=== PATIENT | male | born 1990 | race Caucasian/White ===

== ENCOUNTER 2019-03-23 15:52 | Inpatient (IN) | payer OTHER ==
[2019-03-23] MEDS ORDERED: ONDANSETRON 4 MG INJ IV (17:30)
[2019-03-23] MEDS ORDERED: ACETAMINOPHEN 325 MG TAB PO (17:30)
[2019-03-24] MEDS ORDERED: ACETAMINOPHEN 325 MG TAB PO (00:30)
[2019-03-24] MEDS ORDERED: ONDANSETRON 4 MG INJ IV (00:30)
[2019-03-24] MEDS: SOD CHLORIDE 0.9% 1,000 ML IV ×3 (00:56→20:20)
[2019-03-24 04:20] LABS: ADD UMIC YES; UR ASCORBIC ACID NEGATIVE (NEGATIVE); UR BILIRUBIN (Dip) NEGATIVE (NEGATIVE); UR BLOOD (Dip) NEGATIVE (NEGATIVE); UR CLARITY CLEAR (CLEAR); UR COLOR YELLOW (YELLOW); UR GLUCOSE (Dip) NEGATIVE (NEGATIVE); UR KETONES (Dip) NEGATIVE (NEGATIVE); UR LEUKOCYTE ESTERASE (Dip) NEGATIVE Leu/ul (NEGATIVE); UR NITRITE (Dip) NEGATIVE (NEGATIVE); UR RBC 0 /HPF (0-5); UR SPECIFIC GRAVITY (Dip) 1.013 (1.003-1.030); UR TOTAL PROTEIN (Dip) 1+ mg/dl (NEGATIVE); UR UROBILINOGEN (Dip) NEGATIVE (NEGATIVE); UR WBC 0 /HPF (0-5)
[2019-03-24 04:21] LABS: SODIUM,URINE RANDOM 37 mmol/L (30-90)
[2019-03-24 06:53] LABS: ADD MAN DIFF? NO
[2019-03-24 06:58] LABS: BASOPHILS % 0.1 % (0.0-2.0); EOSINOPHILS % 0.1 % (0.0-7.0); HEMATOCRIT 29.9 % (42.0-52.0); HEMOGLOBIN 10.1 g/dl (14.0-18.0); LYMPHOCYTES # 1.5 10^3/ul (0.8-2.9); LYMPHOCYTES % 15.4 % (15.0-51.0); MEAN CORPUSCULAR HEMOGLOBIN 30.3 pg (29.0-33.0); MEAN CORPUSCULAR HGB CONC 33.8 g/dl (32.0-37.0); MEAN CORPUSCULAR VOLUME 89.8 fl (82.0-101.0); MEAN PLATELET VOLUME 10.1 fl (7.4-10.4); MONOCYTE # 0.7 10^3/ul (0.3-0.9); MONOCYTES % 7.4 % (0.0-11.0); NEUTROPHIL # 7.4 10^3/ul (1.6-7.5); NEUTROPHILS % 76.7 % (39.0-77.0); PLATELET COUNT 243 10^3/UL (140-415); RED BLOOD COUNT 3.33 10^6/ul (4.70-6.10); RED CELL DISTRIBUTION WIDTH 12.3 % (11.5-14.5)
[2019-03-24 06:58] LABS: WHITE BLOOD COUNT 9.6 10^3/ul (4.8-10.8)
[2019-03-24 07:15] LABS: ANION GAP 11 (5-13); BLOOD UREA NITROGEN 61 mg/dl (7-20); CARBON DIOXIDE 20 mmol/L (21-31); CHLORIDE 108 mmol/L (97-110); CREATINE KINASE 69 IU/L (23-200); CREATININE 3.73 mg/dl (0.61-1.24); Estimated GFR 19 mL/min (>60); GLUCOSE 105 mg/dl (70-220); POTASSIUM 4.9 mmol/L (3.5-5.1); SODIUM 139 mmol/L (135-144)
[2019-03-24] MEDS: ALLOPURINOL 300 MG TAB PO (08:35)
[2019-03-24] MEDS: FERROUS SULFATE (EC) 325 MG TAB PO (08:36)
[2019-03-24] MEDS: MULTIVITAMINS THERAPEUTIC TAB PO (08:36)
[2019-03-24] MEDS: AMLODIPINE 10 MG TAB PO (08:36)
[2019-03-24] MEDS ORDERED: MULTIVITAMIN PO (09:00)
[2019-03-24] MEDS: morphine 2 MG INJ IV (20:15)
[2019-03-24] MEDS: ATORVASTATIN 10 MG TAB PO (20:16)
[2019-03-24] MEDS ORDERED: NON-FORMULARY/PATIENT OWN MED (Simvastatin* (Zocor*) 10 MG) PO (21:00)
[2019-03-25] MEDS: morphine 2 MG INJ IV ×2 (00:44→05:03)
[2019-03-25 06:29] LABS: ADD MAN DIFF? NO
[2019-03-25 06:32] LABS: BASOPHILS % 0.4 % (0.0-2.0); EOSINOPHILS # 0.1 10^3/ul (0.0-0.5); EOSINOPHILS % 0.8 % (0.0-7.0); HEMATOCRIT 28.6 % (42.0-52.0); HEMOGLOBIN 9.6 g/dl (14.0-18.0); LYMPHOCYTES # 2.3 10^3/ul (0.8-2.9); LYMPHOCYTES % 30.1 % (15.0-51.0); MEAN CORPUSCULAR HEMOGLOBIN 30.2 pg (29.0-33.0); MEAN CORPUSCULAR HGB CONC 33.6 g/dl (32.0-37.0); MEAN CORPUSCULAR VOLUME 89.9 fl (82.0-101.0); MEAN PLATELET VOLUME 10.3 fl (7.4-10.4); MONOCYTE # 0.6 10^3/ul (0.3-0.9); MONOCYTES % 8.1 % (0.0-11.0); NEUTROPHIL # 4.6 10^3/ul (1.6-7.5); NEUTROPHILS % 60.5 % (39.0-77.0); PLATELET COUNT 252 10^3/UL (140-415); RED BLOOD COUNT 3.18 10^6/ul (4.70-6.10); RED CELL DISTRIBUTION WIDTH 12.2 % (11.5-14.5)
[2019-03-25 06:32] LABS: WHITE BLOOD COUNT 7.6 10^3/ul (4.8-10.8)
[2019-03-25 06:53] LABS: ANION GAP 11 (5-13); BLOOD UREA NITROGEN 58 mg/dl (7-20); CALCIUM 9.1 mg/dl (8.4-10.2); CARBON DIOXIDE 20 mmol/L (21-31); CHLORIDE 111 mmol/L (97-110); Estimated GFR 22 mL/min (>60); GLUCOSE 138 mg/dl (70-220); PHOSPHORUS 3.4 mg/dl (2.5-4.9); POTASSIUM 4.2 mmol/L (3.5-5.1); SODIUM 142 mmol/L (135-144)
[2019-03-25 08:01] LABS: HEMOGLOBIN A1C 5.3 % (0-5.9)
[2019-03-25] MEDS: ALLOPURINOL 300 MG TAB PO (09:35)
[2019-03-25] MEDS: MULTIVITAMINS THERAPEUTIC TAB PO (09:35)
[2019-03-25] MEDS: FERROUS SULFATE (EC) 325 MG TAB PO (09:35)
[2019-03-25] MEDS: AMLODIPINE 10 MG TAB PO (09:36)
[2019-03-25] MEDS: HYDROmorphONE 2 MG TAB PO ×2 (09:46→22:34)
[2019-03-25] MEDS: SOD CHLORIDE 0.9% 1,000 ML IV (09:53)
[2019-03-25 11:54] LABS: COLLECTION PERIOD 24 hrs
[2019-03-25 12:27] LABS: VOLUME 4025 mls
[2019-03-25 12:29] LABS: 24 HR POTASSIUM VOLUME 4025 mls; URINE POTASSIUM 16.1 mmol/l
[2019-03-25 12:30] LABS: 24HR URINE TOTAL PROTEIN 925.8 mg/24hrs (42.0-225.0); VOLUME 4025 mls
[2019-03-25] MEDS: ATORVASTATIN 10 MG TAB PO (21:46)
[2019-03-26] MEDS: SOD CHLORIDE 0.9% 1,000 ML IV (03:32)
[2019-03-26] MEDS: PANTOPRAZOLE (EC) 40 MG TAB PO (06:15)
[2019-03-26 06:25] LABS: ADD MAN DIFF? NO
[2019-03-26 06:34] LABS: WHITE BLOOD COUNT 7.8 10^3/ul (4.8-10.8)
[2019-03-26 06:34] LABS: BASOPHIL # 0.1 10^3/ul (0.0-0.1); BASOPHILS % 0.9 % (0.0-2.0); EOSINOPHILS # 0.2 10^3/ul (0.0-0.5); EOSINOPHILS % 2.2 % (0.0-7.0); HEMATOCRIT 27.9 % (42.0-52.0); HEMOGLOBIN 9.3 g/dl (14.0-18.0); LYMPHOCYTES # 2.6 10^3/ul (0.8-2.9); LYMPHOCYTES % 32.8 % (15.0-51.0); MEAN CORPUSCULAR HEMOGLOBIN 29.7 pg (29.0-33.0); MEAN CORPUSCULAR HGB CONC 33.3 g/dl (32.0-37.0); MEAN CORPUSCULAR VOLUME 89.1 fl (82.0-101.0); MEAN PLATELET VOLUME 10.1 fl (7.4-10.4); MONOCYTE # 0.7 10^3/ul (0.3-0.9); NEUTROPHIL # 4.3 10^3/ul (1.6-7.5); NEUTROPHILS % 54.8 % (39.0-77.0); PLATELET COUNT 239 10^3/UL (140-415); RED BLOOD COUNT 3.13 10^6/ul (4.70-6.10); RED CELL DISTRIBUTION WIDTH 12.4 % (11.5-14.5)
[2019-03-26 07:39] LABS: ANION GAP 9 (5-13); BLOOD UREA NITROGEN 56 mg/dl (7-20); CALCIUM 9.1 mg/dl (8.4-10.2); CARBON DIOXIDE 19 mmol/L (21-31); CHLORIDE 113 mmol/L (97-110); CREATININE 2.89 mg/dl (0.61-1.24); Estimated GFR 26 mL/min (>60); GLUCOSE 94 mg/dl (70-220); POTASSIUM 4.4 mmol/L (3.5-5.1); SODIUM 141 mmol/L (135-144)
[2019-03-26] MEDS: FERROUS SULFATE (EC) 325 MG TAB PO (10:07)
[2019-03-26] MEDS: MULTIVITAMINS THERAPEUTIC TAB PO (10:07)
[2019-03-26] MEDS: AMLODIPINE 10 MG TAB PO (10:07)
[2019-03-26] MEDS: HYDROmorphONE 2 MG TAB PO (10:08)
[2019-03-26] MEDS: ALLOPURINOL 300 MG TAB PO (10:08)
== END 2019-03-26 11:05 | disposition home or self-care (01) | DRG 552 ==
LOC: E/R 15:52 → PP2 17:14
PROVIDERS: Internal Medicine
DX: M51.26 Other intervertebral disc displacement, lumbar region (principal); N17.9 Acute kidney failure, unspecified; I12.9 Hypertensive chronic kidney disease with stage 1 through stage 4 chronic kidney disease, or unspecified chronic kidney disease; N18.3 Chronic kidney disease, stage 3 (moderate); D63.1 Anemia in chronic kidney disease; E78.5 Hyperlipidemia, unspecified; M51.36 Other intervertebral disc degeneration, lumbar region; M06.9 Rheumatoid arthritis, unspecified; M10.9 Gout, unspecified
CPT/HCPCS: 72148; 76775; 80048; 81001; 82550; 82652; 83036; 84100; 84105; 84133; 84156; 84300; 84560; 85025; 89190; 99285-25